=== PATIENT | male | born 1975 | race Hispanic/Latino ===

== ENCOUNTER 2024-09-03 19:31 | Emergency (ER) | payer BC ==
[2024-09-03] MEDS ORDERED: Ibuprofen 800 MG TAB ONE (19:59)
[2024-09-03] MEDS ORDERED: Ondansetron ODT 4 MG TAB ONE (21:40)
[2024-09-03] MEDS ORDERED: Benzonatate 100 MG CAP ONE (21:40)
== END 2024-09-03 21:55 | disposition home or self-care (01) ==
LOC: NAV ERS 19:31
DX: J11.1 Influenza due to unidentified influenza virus with other respiratory manifestations (principal); E11.9 Type 2 diabetes mellitus without complications
CPT/HCPCS: 87428; 99283; Q0162

== ENCOUNTER 2025-05-08 20:56 | Emergency (ER) | payer BC ==
[2025-05-08 21:25] LABS: #Basophils 0.1 thou/uL (0.0-0.2); #Eosinophils 0.1 thou/uL (0.0-0.7); #Lymphocytes 2.9 thou/uL (1.20-3.40); #Monocytes 0.5 thou/uL (0.11-0.59); #Neutrophils 3.8 thou/uL (1.40-6.50); %Basophils 0.7 % (0.0-1.0); %Eosinophils 1.4 % (0.0-10.0); %Lymphocytes 39.1 % (21.0-51.0); %Monocytes 7.1 % (0.0-10.0); %Neutrophils 51.6 % (42.0-75.0); Hematocrit 44.2 % (42.0-52.0); Hemoglobin 15.5 g/dL (14.0-18.0); Mean Corpuscular Hemoglobin 27.5 pg (27.0-31.0); Mean Corpuscular Volume 78.3 fl (78.0-98.0); Platelet Count 256 10x3/uL (130-400); Red Blood Cell (RBC) Count 5.65 mill/uL (4.70-6.10); White Blood Cell (WBC) Count 7.4 10x3/uL (4.8-10.8)
[2025-05-08 21:44] LABS: ALT (SGPT) 26 U/L (Less than 45); AST (SGOT) 15 U/L (11-34); Albumin 4.1 g/dL (3.1-4.5); Alkaline Phosphatase 75 U/L (40-110); Anion Gap 17 mmol/L (10-20); BUN (Urea Nitrogen) 23 mg/dL (8.9-20.6); Bilirubin, Total 0.3 mg/dL (0.3-1.2); Calc. Creatinine Clearance 0 mL/min (70-130); Calcium 9.2 mg/dL (7.8-10.44); Carbon Dioxide 24 mmol/L (22-29); Chloride 101 mmol/L (98-107); Globulin 3.1 g/dL (2.4-3.5); Glucose 304 mg/dL (70-105); Magnesium 1.9 mg/dL (1.6-2.6); Potassium 3.8 mmol/L (3.5-5.1); Sodium 138 mmol/L (136-145)
[2025-05-08 21:45] LABS: Troponin I 0.013 ng/mL (< 0.028)
[2025-05-08 21:49] LABS: Glucose, Urine (Dipstick) 500 mg/dL (Negative); Leukocyte Negative (Negative); Protein, Urine (Dipstick) Negative (Neg-Trace); Specific Gravity, Urine 1.015 (1.005-1.030)
[2025-05-08 21:52] LABS: Bacteria/HPF None Seen HPF (None Seen); CAUTI Indications for Culture Dysuria,urgency,freq; RBC/HPF None Seen HPF (0-3); WBC/HPF None Seen HPF (0-3)
[2025-05-08 21:53] LABS: Urine Culture Reflex No No
== END 2025-05-08 22:35 | disposition home or self-care (01) ==
LOC: NAV ERS 20:56
DX: E11.65 Type 2 diabetes mellitus with hyperglycemia (principal); I10 Essential (primary) hypertension
CPT/HCPCS: 36416; 71046; 80053; 81001; 83735; 84484; 85025; 93005; 94760; 96361; 96374; J1815; J7030